=== PATIENT | male | born 1960 | race Caucasian/White ===

== ENCOUNTER 2024-01-28 09:13 | Emergency (ER) | payer MEDICARE, SELFPAY ==
[2024-01-28 09:32] VITALS: BP 102/60; PULSE 92; RESP 16; TEMP 37.1; O2SAT 98
--- NOTE | 2024-01-28 11:28 | ED.EXTPRO ---
HPI - Extremity Problem General Chief complaint: Extremity Problem,Nontraumatic Stated complaint: cast too tight Time Seen by Provider: 01/28/24 10:50 Source: patient Mode of arrival: ambulatory Limitations: no limitations History of Present Illness HPI Narrative: This is a 63-year-old male with PMH of diabetes, Charcot foot, diabetic foot ulcer who presents to the ED with a chief complaint of increasing left foot pain beginning yesterday. Reports that he gets weekly dressing/cast changes with his wound care clinic back in [place]. He is here visiting family for the weekend. States that the cast feels very tight and is extremely painful. He also reports that it feels like his Charcot foot is flaring up causing more pain. States he does have sensation to his toes distally and denies any significant change to sensation. Denies any further complaints. Denies injury Related Data Allergies Allergy/AdvReac Type Severity Reaction Status Date / Time No Known Allergies Allergy Verified 01/28/24 09:16 Review of Systems Review of Systems: All systems as dictated in HPI Exam Narrative: GENERAL: Well-appearing, well-nourished, and in no acute distress. HEAD: Normocephalic, atraumatic. EYES: PERRLA and EOMI. ENT: Nares clear, no rhinorrhea or epistaxis. Mucous membranes moist. Oropharynx without tonsillar hypertrophy exudate or other lesions. NECK: Supple. No adenopathy or masses. CHEST: No respiratory distress. Clear to auscultation. No wheezes rales or rhonchi HEART: Regular rate and rhythm. No murmur heard. Normal peripheral pulses. ABDOMEN: Soft, nontender, nondistended, normal active bowel sounds. MSK: Normal range of motion. No edema. Cap refill intact bilaterally. 5/5 sensation to the bilateral lower extremities distally. SKIN: Warm, dry, no rash. NEURO: Alert and oriented x3. No focal deficits. PSYCH: Normal mood and affect. Skin examination after cast removal: There is a 2 cm x 2 cm lateral ulcer to the left foot. At least stage 3, no bone seen or probed. No purulence. No malodor. Minimal tenderness. Minimal erythema. Immediate relief of pain noted after cast removal Course Vital Signs Vital signs: Vital Signs Temperature 98.7 F 01/28/24 09:32 Pulse Rate 92 01/28/24 09:32 Respiratory Rate 16 05/27/24 09:32 Blood Pressure 102/60 01/28/24 09:32 Pulse Oximetry 98 01/28/24 09:32 Oxygen Delivery Room Air 01/28/24 09:32 Temperature 98.7 F 01/28/24 09:32 Pulse Rate 92 01/28/24 09:32 Respiratory Rate 16 01/28/24 09:32 Blood Pressure 102/60 01/28/24 09:32 Pulse Oximetry 98 01/28/24 09:32 Oxygen Delivery Room Air 01/28/24 09:32 Procedures Cast Removal Cast #1: Date: 01/28/24 Time: 12:25 Reason for procedure: too tight Cut saw used: Yes Cast procedure: removal Post Removal Neuro Exam: intact Post Removal Vascular Exam: intact Patient Tolerated Procedure: well MDM - Extremity (Nontraumatic) MDM Narrative Medical decision making narrative: This is a 63-year-old male who presents to the ED with chief complaint of lower extremity that he attributes to his cast being too tight. He gets regular care for diabetic ulcer and Charcot foot and had a cast placed 5 days ago. Vitals are normal Exam is benign overall. We were able to solve the cast and removed today. This provided significant relief. There is no evidence of compartment syndrome on exam. There is a healing diabetic ulcer to the lateral foot. The foot is clearly Charcot in nature. Patient is able to see the foot and states that it looks better compared to last week. Symptoms consistent with pain due to the cast being too tight. He was placed and new dressing here and will follow up with his mood care clinic in 2 days. Pt will be discharged in stable condition. Return precautions given and supportive measures discussed. Pt is understanding and agreeab
== END 2024-01-28 12:30 | disposition home or self-care (01) ==
PROVIDERS: Emergency Provider Physician Assistant
DX: E11.621 Type 2 diabetes mellitus with foot ulcer (principal); L97.529 Non-pressure chronic ulcer of other part of left foot with unspecified severity; E11.610 Type 2 diabetes mellitus with diabetic neuropathic arthropathy
CPT/HCPCS: 99283